=== PATIENT | female | born 1965 | race Caucasian/White ===

== ENCOUNTER → 2023-03-19 | Day surgery (SDC) | payer BC ==
[~2023-03-19] MED LIST: ACETAMINOPHEN 1000 MG/100 ML 100 ML IV ONE; BIOTIN800 MCG PO; BUPIVACAINE HCL 0.5% INJ 30 ML VIAL INJ ONE; CRANBERRY400 MG PO; DEXAMETHASONE SOD PHOS INJ 4 MG/ML SDV ONE; EPHEDRINE SULFATE INJ 50 MG/ML VIAL ONE; FISH OIL 1,0001 EACH PO; IMITREX50 MG PO; LACTATED RINGER'S 1,000 ML ONE; LEVOTHYROXINE50 MCG PO; LIDOCAINE HCL 2% LOCAL INJ 5 ML SDV VIAL INJ ONE; MAGNESIUM OXID400 MG PO; NEOSTIGMINE 1 MG/ML 10ML VIAL ONE; ONDANSETRON HCL INJ 2MG/ML 2ML 2 MG/ML VIAL ONE; PRILOSEC OTC20 MG PO; PROPOFOL IV EMULSION 10 MG/ML 20 ML VIAL ONE; SEVOFLURANE INHAL SOLN 250 ML PEN BTL ONE; TRAZODONE HCL50 MG PO; ZINC PO
[2023-03-19 14:30] VITALS: BP 127/71; PULSE 80; RESP 17; O2SAT 98
== END | disposition home or self-care (01) ==
LOC: OR 09:05
PROVIDERS: ATTEND Podiatrist Foot & Ankle Surgery
DX: M76.821 Posterior tibial tendinitis, right leg (principal); M72.2 Plantar fascial fibromatosis; M65.9 Synovitis and tenosynovitis, unspecified; I83.91 Asymptomatic varicose veins of right lower extremity; E03.9 Hypothyroidism, unspecified; K21.9 Gastro-esophageal reflux disease without esophagitis; Z88.1 Allergy status to other antibiotic agents; Z88.8 Allergy status to other drugs, medicaments and biological substances; Z79.899 Other long term (current) drug therapy; Z87.01 Personal history of pneumonia (recurrent)
CPT/HCPCS: 27680; 28035; 29893; C1762; J0131; J1100; J2001; J2405; J2704; J7121; J2710

== ENCOUNTER 2023-11-30 09:29 | Emergency (ER) | payer BC ==
[~2023-11-30] VITALS: Ht 162.6 cm; Wt 78.5 kg
[~2023-11-30 09:29] MED LIST changes: -ACETAMINOPHEN 1000 MG/100 ML 100 ML IV ONE; -BUPIVACAINE HCL 0.5% INJ 30 ML VIAL INJ ONE; -DEXAMETHASONE SOD PHOS INJ 4 MG/ML SDV ONE; -EPHEDRINE SULFATE INJ 50 MG/ML VIAL ONE; -LACTATED RINGER'S 1,000 ML ONE; -LIDOCAINE HCL 2% LOCAL INJ 5 ML SDV VIAL INJ ONE; -NEOSTIGMINE 1 MG/ML 10ML VIAL ONE; -ONDANSETRON HCL INJ 2MG/ML 2ML 2 MG/ML VIAL ONE; -PROPOFOL IV EMULSION 10 MG/ML 20 ML VIAL ONE; -SEVOFLURANE INHAL SOLN 250 ML PEN BTL ONE
[2023-11-30 09:40] VITALS: TEMP 100.6
[2023-11-30 10:04] LABS: BASOPHILS % 0.4 % (0.0-1.0); EOSINOPHILS % 0.1 % (0.0-6.0); HEMATOCRIT 39.1 % (34.2-44.1); HEMOGLOBIN 12.8 g/dL (12.0-16.0); LYMPHOCYTES # (AUTO) 1.3 (1.0-3.2); LYMPHOCYTES % 13.9 % (18.0-39.1); MEAN CORPUSCULAR HGB CONC 32.7 g/dL (31-35); MEAN CORPUSCULAR VOLUME 88.7 fL (81-99); MONOCYTES # (AUTO) 0.6 (0.2-0.8); MONOCYTES % 6.5 % (4.4-11.3); NEUTROPHILS # (AUTO) 7.3 (2.1-6.9); NEUTROPHILS % 78.6 % (38.7-80.0); PLATELET COUNT 271 x10e3/uL (140-360); RED BLOOD COUNT 4.41 x10e6/uL (3.6-5.1); RED CELL DISTRIBUTION WIDTH 13.6 % (11.7-14.4); WHITE BLOOD COUNT 9.24 x10e3/uL (4.8-10.8)
[2023-11-30 10:13] LABS: BILIRUBIN,URINE NEGATIVE (NEGATIVE); CLARITY,URINE CLEAR (CLEAR); COLOR,URINE COLORLESS (YELLOW); GLUCOSE, URINE NEGATIVE (NEGATIVE); KETONES,URINE NEGATIVE (NEGATIVE); LEUKOCYTE ESTERASE ,URINE NEGATIVE (NEGATIVE); NITRITE,URINE NEGATIVE (NEGATIVE); PH,URINE 6.5 (5 - 7); PROTEIN,URINE DIPSTICK NEGATIVE (NEGATIVE); URINE UROBILINOGEN 0.2 mg/dL (0.2 - 1)
[2023-11-30 10:18] LABS: INR 0.99; PROTHROMBIN TIME 13.6 seconds (11.9-14.5)
[2023-11-30] MEDS: SODIUM CHLORIDE 0.9% 1000ML 1,000 ML IV STA (10:18)
[2023-11-30] MEDS: ONDANSETRON HCL INJ 2MG/ML 2ML 2 MG/ML VIAL IV STA (10:18)
[2023-11-30 10:19] LABS: PARTIAL THROMBOPLASTIN TIME 35.3 seconds (23.8-35.5)
[2023-11-30] MEDS: ACETAMINOPHEN 325 MG TAB PO ONE (10:23)
[2023-11-30 10:29] LABS: ALANINE AMINOTRANSFERASE 12 IU/L (0-55); ALBUMIN 4.6 g/dL (3.5-5.0); ALBUMIN/GLOBULIN RATIO 1.4 (0.8-2.0); ALKALINE PHOSPHATASE 81 IU/L (40-150); ANION GAP 14.6 mmol/L (8-16); BILIRUBIN,TOTAL 0.3 mg/dL (0.2-1.2); BLOOD UREA NITROGEN 6 mg/dL (7-26); BUN/CREATININE RATIO 7 (6-25); CALCIUM 9.5 mg/dL (8.4-10.2); CARBON DIOXIDE 22 mmol/L (22-29); CHLORIDE 103 mmol/L (98-107); CREATINE KINASE 60 IU/L (29-168); CREATININE, SERUM 0.91 mg/dL (0.57-1.11); EST GLOMERULAR FILTRATION RATE 72 ML/MIN (>=60); GLUCOSE 110 mg/dL (74-118); MAGNESIUM 1.9 MG/DL (1.3-2.1); POTASSIUM 3.6 mmol/L (3.5-5.1); SODIUM 136 mmol/L (136-145)
[2023-11-30 10:37] VITALS: PULSE 88; RESP 18
[2023-11-30 10:37] LABS: EPITHELIAL CELLS,URINE RARE /LPF; TRANSITIONAL EPI CELLS,URINE RARE; WBC,URINE (MAN) 0-5 /HPF (0-5)
[2023-11-30 10:47] LABS: TROPONIN I < 0.001 ng/mL (0-0.300)
[2023-11-30 11:50] VITALS: BP 132/72; PULSE 79; RESP 17; TEMP 98.9; O2SAT 99
== END 2023-11-30 11:45 | disposition home or self-care (01) ==
LOC: ER 09:37
DX: R50.9 Fever, unspecified (principal); B34.9 Viral infection, unspecified; R05.9 Cough, unspecified; K21.9 Gastro-esophageal reflux disease without esophagitis; M54.9 Dorsalgia, unspecified; G89.29 Other chronic pain; Z11.52 Encounter for screening for COVID-19; R94.31 Abnormal electrocardiogram [ECG] [EKG]
CPT/HCPCS: 36415; 71045; 80053; 81001; 82550; 83735; 84484; 85025; 85610; 85730; 87086; 87400; 93005; 99283; J2405; J2470; J7030; U0002

== ENCOUNTER 2024-04-16 10:47 | Emergency (ER) | payer BC ==
[~2024-04-16] VITALS: Ht 157.5 cm; Wt 79.4 kg
[2024-04-16 11:11] VITALS: PULSE 87; RESP 16; TEMP 98; O2SAT 98
[2024-04-16] MEDS: KETOROLAC TROMETHAMINE 30 MG/ML VIAL IM ONE (11:41)
== END 2024-04-16 12:51 | disposition home or self-care (01) ==
LOC: ER 11:08
DX: M54.50 Low back pain, unspecified (principal); G89.29 Other chronic pain; K21.9 Gastro-esophageal reflux disease without esophagitis; Z86.39 Personal history of other endocrine, nutritional and metabolic disease
CPT/HCPCS: 99282; J1885